=== PATIENT | male | born 1950 | race Caucasian/White ===

== ENCOUNTER 2017-08-08 11:37 | Observation (INO) | payer MEDICARE, OTHER ==
[~2017-08-08] VITALS: Ht 180.3 cm; Wt 122.0 kg
[2017-08-08 11:41] VITALS: BP 161/96; PULSE 59; RESP 17; TEMP 98.1; O2SAT 95
--- NOTE | 2017-08-08 11:54 | PD ---
HPI Chief Complaint: SPEECH PROBLEMS Time Seen by Provider: 11:49 Travel History International Travel<30 days: No Contact w/Intl Traveler<30days: No Traveled to known affect area: No History of Present Illness HPI PATIENT WAS NOTED BY TO BE SPEAKING CLEAR BUT ASKING REPETITIVE QUESTIONS AT 9A, WHILE GETTING OUT OF SHOWER...PATIENT ABLE TO MOVE ALL EXTREMITIES WELL. PATIENT DENIES ASSOC FACTORS OF GÓMEZ/CP/ABDPAIN/BACKPAIN/N/V/D/COUGH/....PER FAMILY NORMAL GLUCOSE AT HOME..... STATES THAT THEY ARE HERE VISITING, DO NOT HAVE LOCAL DOCTORS. PMHX: DM, HTN, CHOL Allergies-Medications (Allergen,Severity, Reaction): Coded Allergies: No Known Allergies (Unverified , 08/08/17) Reported Meds & Prescriptions Reported Meds & Active Scripts Active Reported D3 Super Strength (Cholecalciferol) 2,000 Unit Cap 2,000 Units PO DAILY B12 (Cyanocobalamin) 1,000 Mcg Tab 5,000 Vitamin E 100 Unit Tab 100 Units PO DAILY Pioglitazone-Metformin 15-500 mg Tab 1 Tab PO DAILY Aspirin 81 Mg Chew 81 Mg CHEW DAILY Rosuvastatin (Rosuvastatin Calcium) 10 Mg Tab 10 Mg PO HS Alfuzosin ER 24 HR 10 Mg Tab 10 Mg PO DAILY Glucosamine-Chondroitin 500-400 Mg Tab 1 Tab PO DAILY Review of Systems Except as stated in HPI: all other systems reviewed are Neg General / Constitutional: No: Fever Eyes: No: Visual changes HENT: No: Headaches Cardiovascular: No: Chest Pain or Discomfort Respiratory: No: Shortness of Breath Gastrointestinal: No: Abdominal Pain Genitourinary: No: Dysuria Musculoskeletal: No: Pain Skin: No Rash Neurologic: Positive: Other (REPETITIVE QUESTIONING) Psychiatric: No: Depression Endocrine: No: Polydipsia Hematologic/Lymphatic: No: Easy Bruising Physical Exam Narrative GENERAL: SKIN: Warm and dry. HEAD: Atraumatic. Normocephalic. EYES: Pupils equal and round. No scleral icterus. No injection or drainage. ENT: No nasal bleeding or discharge. Mucous membranes pink and moist. NECK: Trachea midline. No JVD. CARDIOVASCULAR: Regular rate and rhythm. RESPIRATORY: No accessory muscle use. Clear to auscultation. Breath sounds equal bilaterally. GASTROINTESTINAL: Abdomen soft, non-tender, nondistended. MUSCULOSKELETAL: Extremities without clubbing, cyanosis, or edema. No obvious deformities. NEUROLOGICAL: Awake and alert. No obvious cranial nerve deficits. Motor grossly within normal limits. Five out of 5 muscle strength in the arms and legs. Normal speech. PSYCHIATRIC: Appropriate mood and affect; insight and judgment normal. Data Data Last Documented VS Vital Signs Date Time Temp Pulse Resp B/P (MAP) Pulse Ox O2 Delivery O2 Flow Rate FiO2 08/08/17 12:41 82 17 140/86 (104) 98 Room Air 08/08/17 11:41 98.1 Orders Orders Electrocardiogram (08/08/17 11:59) Prothrombin Time / Inr (Pt) (08/08/17 11:59) Act Partial Throm Time (Ptt) (08/08/17 11:59) Complete Blood Count With Diff (08/08/17 11:59) Comprehensive Metabolic Panel (08/08/17 11:59) Drug Screen, Random Urine (08/08/17 11:59) Troponin I (08/08/17 11:59) Urinalysis - C+S If Indicated (08/08/17 11:59) Ct Brain W/O Iv Contrast(Rout) (08/08/17 11:59) Chest, Single Ap (08/08/17 11:59) Ecg Monitoring (08/08/17 11:59) Iv Access Insert/Monitor (08/08/17 11:59) Oximetry (08/08/17 11:59) Blood Glucose (08/08/17 11:59) Sodium Chloride 0.9% Flush (Ns Flush) (08/08/17 12:00) Labs Laboratory Tests Test 08/08/17 12:05 08/08/17 12:42 White Blood Count 7.2 TH/MM3 Red Blood Count 4.30 MIL/MM3 Hemoglobin 13.5 GM/DL Hematocrit 40.7 % Mean Corpuscular Volume 94.8 FL Mean Corpuscular Hemoglobin 31.4 PG Mean Corpuscular Hemoglobin Concent 33.1 % Red Cell Distribution Width 13.0 % Platelet Count 252 TH/MM3 Mean Platelet Volume 7.2 FL Neutrophils (%) (Auto) 65.5 % Lymphocytes (%) (Auto) 21.2 % Monocytes (%) (Auto) 11.4 % Eosinophils (%) (Auto) 1.6 % Basophils (%) (Auto) 0.3 % Neutrophils # (Auto) 4.7 TH/MM3 Lymphocytes # (Auto) 1.5 TH/MM3 Monocytes # (Auto) 0.8 TH/MM3 Eosinophils # (Auto) 0.1 TH/MM3 Basophils # (Auto) 0.0 TH/MM3 CBC Comment DIFF FINAL Differential Comment Prothrombin Time 10.5 SEC Prothromb Time International Ratio 1.0 RATIO Activated Partial Thromboplast Time 26.2 SEC Blood Urea Nitrogen 21 MG/DL Creatinine 1.20 MG/DL Random Glucose 107 MG/DL Total Protein 7.8 GM/DL Albumin 3.6 GM/DL Calcium Level 9.3 MG/DL Alkaline Phosphatase 73 U/L Aspartate Amino Transf (AST/SGOT) 52 U/L Alanine Aminotransferase (ALT/SGPT) 51 U/L Total Bilirubin 0.5 MG/DL Sodium Level 139 MEQ/L Potassium Level 5.2 MEQ/L Chloride Level 104 MEQ/L Carbon Dioxide Level 27.9 MEQ/L Anion Gap 7 MEQ/L Estimat Glomerular Filtration Rate 61 ML/MIN Troponin I LESS THAN 0.02 NG/ML Urine Color YELLOW Urine Turbidity CLEAR Urine pH 7.0 Urine Specific [place] 1.015 Urine Protein NEG mg/dL Urine Glucose (UA) NEG mg/dL Urine Ketones NEG mg/dL Urine Occult Blood NEG Urine Nitrite NEG Urine Bilirubin NEG Urine Urobilinogen LESS THAN 2.0 MG/DL Urine Leukocyte Esterase NEG Urine RBC 1 /hpf Urine WBC 4 /hpf Urine Amorphous Sediment RARE Urine Mucus FEW /lpf Microscopic Urinalysis Comment CATH-CULT NOT IND Urine Opiates Screen NEG Urine Barbiturates Screen NEG Urine Amphetamines Screen NEG Urine Benzodiazepines Screen NEG Urine Cocaine Screen NEG Urine Cannabinoids Screen NEG [facility] Medical Decision Making Medical Screen Exam Complete: Yes Emergency Medical Condition: Yes Medical Record Reviewed: Yes Differential Diagnosis TIA V CVA (WERNICKIE V BROCA TYPE) V HYPOGLYCEMIA Narrative Course CT HEAD NEG FOR ICH, GLUCOSE WNL, ELECTROLYTE WNL.....PATIENT WILL BE ADMITTED FOR FURTHER WORKUP C/W TIA Diagnosis Primary Impression: TIA Admitting Information Admitting Physician Requests: Observation Gautam Rendon MD Aug 08, 2017 11:54
[2017-08-08] MEDS ORDERED: SODIUM CHLORIDE 0.9% FLUSH 10 ML FLUSH IVF PRN (12:00)
[2017-08-08] MEDS ORDERED: GLUC500T4 PO (12:06)
[2017-08-08] MEDS ORDERED: VITA100T65 PO (12:06)
[2017-08-08] MEDS ORDERED: ALFU10TA2 PO (12:06)
[2017-08-08] MEDS ORDERED: ROSU1TAB6 PO (12:06)
[2017-08-08] MEDS ORDERED: PIOG15TA7 PO (12:06)
[2017-08-08] MEDS ORDERED: ASPI-516 CHEW (12:06)
[2017-08-08] MEDS ORDERED: CYAN1TAB24 (12:06)
[2017-08-08] MEDS ORDERED: D200CAP PO (12:06)
[2017-08-08 12:21] LABS: AUTOMATED NEUTROPHIL # 4.7 TH/MM3 (1.8-7.7); BASOPHIL % 0.3 % (0.0-2.0); EOSINOPHIL # 0.1 TH/MM3 (0-0.4); EOSINOPHIL % 1.6 % (0.0-4.0); HEMATOCRIT 40.7 % (39.0-51.0); HEMOGLOBIN 13.5 GM/DL (13.0-17.0); LYMPH % 21.2 % (9.0-44.0); LYMPHOCYTE # 1.5 TH/MM3 (1.0-4.8); MEAN CELL VOLUME 94.8 FL (80.0-100.0); MEAN CORPUSCULAR HEMOGLOBIN 31.4 PG (27.0-34.0); MEAN CORPUSCULAR HGB CONC 33.1 % (32.0-36.0); MEAN PLATELET VOLUME 7.2 FL (7.0-11.0); MONO % 11.4 % (0.0-8.0); MONOCYTE # 0.8 TH/MM3 (0-0.9); NEUT % 65.5 % (16.0-70.0); PLATELET COUNT 252 TH/MM3 (150-450); WHITE BLOOD COUNT 7.2 TH/MM3 (4.0-11.0)
[2017-08-08 12:29] LABS: PROTHROMBIN TIME - PATIENT 10.5 SEC (9.8-11.6)
[2017-08-08 12:41] VITALS: BP 140/86; PULSE 82; RESP 17; O2SAT 98
[2017-08-08 12:41] LABS: ALT (GPT) 51 U/L (12-78)
[2017-08-08 12:42] LABS: ALBUMIN 3.6 GM/DL (3.4-5.0); BICARBONATE 27.9 MEQ/L (21.0-32.0); BLOOD UREA NITROGEN 21 MG/DL (7-18); CALCIUM 9.3 MG/DL (8.5-10.1); CHLORIDE 104 MEQ/L (98-107); GLOMERULAR FILTRATION RATE 61 ML/MIN (>89); GLUCOSE,RANDOM 107 MG/DL (74-106); SODIUM (NA) 139 MEQ/L (136-145)
[2017-08-08 12:43] LABS: AST (GOT) 52 U/L (15-37)
[2017-08-08 12:45] LABS: ALKALINE PHOSPHATASE 73 U/L (45-117); TOTAL BILIRUBIN ADULT 0.5 MG/DL (0.2-1.0); TOTAL PROTEIN 7.8 GM/DL (6.4-8.2); TROPONIN I LESS THAN 0.02 NG/ML (0.02-0.05)
[2017-08-08 12:49] VITALS: BP 127/71; PULSE 86; RESP 16; O2SAT 100
--- NOTE | 2017-08-08 12:56 | RADRPT ---
EXAM DATE/TIME: 08/08/2017 12:14 [facility] COMPARISON: No previous studies available for comparison. INDICATIONS : Syncope, confusion, high blood pressure. MEDICAL HISTORY : Hypertension. SURGICAL HISTORY : None. ENCOUNTER: Initial ACUITY: 2 days PAIN SCORE: 0/10 LOCATION: Bilateral chest FINDINGS: A single view of the chest demonstrates the lungs to be symmetrically aerated without evidence of mas s, infiltrate or effusion. The cardiomediastinal contours are unremarkable. Osseous structures are intact. CONCLUSION: Normal examination. Luis Angel Kc MD on August 08, 2017 at 12:53 Board Certified Radiologist. This report was verified electronically.
--- NOTE | 2017-08-08 13:05 | RADRPT ---
EXAM DATE/TIME: 08/08/2017 12:51 [facility] COMPARISON: No previous studies available for comparison. INDICATIONS : Altered mental status. Repetitive questioning. RADIATION DOSE: 46.32 CTDIvol (mGy) MEDICAL HISTORY : Hypertension. Diabetes mellitus type 2. SURGICAL HISTORY : Cholecystectomy. Appendectomy. ENCOUNTER: Initial ACUITY: 1 day PAIN SCALE: 0/10 LOCATION: cranial TECHNIQUE: Multiple contiguous axial images were obtained of the head. Using automated exposure control and adj ustment of the mA and/or kV according to patient size, radiation dose was kept as low as reasonably a chievable to obtain optimal diagnostic quality images. DICOM format image data is available electro nically for review and comparison. FINDINGS: CEREBRUM: The ventricles are normal for age. No evidence of midline shift, mass lesion, hemorrhage or acute in farction. No extra-axial fluid collections are seen. POSTERIOR FOSSA: The cerebellum and brainstem are intact. The 4th ventricle is midline. The cerebellopontine angle i s unremarkable. EXTRACRANIAL: The visualized portion of the orbits is intact. SKULL: The calvaria is intact. No evidence of skull fracture. CONCLUSION: Normal examination. Luis Angel Kc MD on August 08, 2017 at 13:01 Board Certified Radiologist. This report was verified electronically.
[2017-08-08 13:17] LABS: AMORPHOUS SEDIMENT, URINE RARE; BILIRUBIN, URINE NEG (NEG); BLOOD, URINE NEG (NEG); GLUCOSE,URINE NEG (NEG); KETONE, URINE NEG (NEG); MUCUS URINE FEW /lpf (OCC); NITRITE,URINE NEG (NEG); URINE COLOR YELLOW (YELLW/STRAW); URINE LEUKOCYTE ESTERASE NEG (NEG)
[2017-08-08] MEDS ORDERED: DEXTROSE 50% IN WATER 50 ML VIAL(D50) IV PUSH PRN (14:15)
[2017-08-08] MEDS ORDERED: GLUCAGON 1 MG/ML VIAL OTHER PRN (14:15)
[2017-08-08] MEDS ORDERED: SODIUM CHLORIDE 0.9% FLUSH 10 ML FLUSH IV FLUSH PRN (14:15)
[2017-08-08] MEDS ORDERED: ENALAPRILAT 1.25 MG/ML VIAL IV PUSH PRN (14:15)
--- NOTE | 2017-08-08 14:18 | HHI.HP ---
HPI Service [facility] Hospitalists Primary Care Physician Non-Staff Admission Diagnosis TIA Diagnoses: Chief Complaint: AMS Travel History International Travel<30 Days: No Contact w/Intl Traveler <30 Da: No Traveled to Known Affected Are: No History of Present Illness Written by Meredith Somers, acting as scribe for Dr. Palma on 08/08/17 at 14: 15. This is a 66yo male with a PMHX of HTN, DM, HLD and BPH who presents to [facility] ED with complaints of altered mental status x 1 day. Patient woke up in his usual state of health this morning but shortly after taking a hot bath he developed altered mental status with repetitive questioning. Patient reports feeling lightheaded after taking a hot bath. He was unable to recall the date or city. Patient was able to recognize his . He was able to walk without any problems. He continues to be confused. He has no recollection of the event. Presently, he is not lightheaded. He denies any chest pain or shortness of breath. He denies any vision changes, weakness, numbness or tingling. He denies any nausea, vomiting or abdominal pain. His states he has not returned to his baseline. In the ED, CT head was negative for acute intracranial process. Lab studies were essentially unremarkable. CXR showed no acute cardiopulmonary process. Initial troponin was 0.02. Review of Systems Except as stated in HPI: all other systems reviewed are Neg Past Family Social History Past Medical History Hypertension Diabetes Dyslipidemia BPH Hx of kidney stones Past Surgical History Cholecystectomy Appendectomy Bilateral shoulder and knee arthroscopies Left CTR Tonsillectomy Reported Medications D3 Super Strength (Cholecalciferol) 2,000 Unit Cap 2,000 Units PO DAILY B12 (Cyanocobalamin) 1,000 Mcg Tab 5,000 Vitamin E 100 Unit Tab 100 Units PO DAILY Pioglitazone-Metformin 15-500 mg Tab 1 Tab PO DAILY Aspirin 81 Mg Chew 81 Mg CHEW DAILY Rosuvastatin (Rosuvastatin Calcium) 10 Mg Tab 10 Mg PO HS Alfuzosin ER 24 HR 10 Mg Tab 10 Mg PO DAILY Glucosamine-Chondroitin 500-400 Mg Tab 1 Tab PO DAILY Allergies: Coded Allergies: No Known Allergies (Unverified , 08/08/17) Active Ordered Medications Current Medications Medications (Trade) Dose Ordered Sig/Anderson Route Start Time Stop Time Status Last Admin (NS Flush) 2 ml UNSCH PRN IVF 08/08/17 12:00 (Aspirin Chew) 81 mg DAILY CHEW 08/09/17 09:00 UNV Non-Formulary Medication 10 mg HS PO 08/08/17 21:00 UNV (NS Flush) 2 ml BID IV FLUSH 08/08/17 21:00 UNV (NS Flush) 2 ml UNSCH PRN IV FLUSH 08/08/17 14:15 UNV (Vasotec Inj) 1.25 mg Q4H PRN IV PUSH 08/08/17 14:15 UNV (NovoLOG SUPPLEMENTAL SCALE) 1 ACHS SQ 08/08/17 17:00 UNV (D50w (Vial) Inj) 50 ml UNSCH PRN IV PUSH 08/08/17 14:15 UNV (Glucagon Inj) 1 mg UNSCH PRN OTHER 08/08/17 14:15 UNV (Lovenox Inj) 40 mg Q24H SQ 08/08/17 14:15 UNV Family History Father, ND, cardiac stents DM No FMHX of stroke Social History Patient denies any previous tobacco use, EtOH consumption or illicit drug use. Physical Exam Vital Signs Vital Signs Date Time Temp Pulse Resp B/P (MAP) Pulse Ox O2 Delivery O2 Flow Rate FiO2 08/08/17 12:41 82 17 140/86 (104) 98 Room Air 08/08/17 11:41 98.1 59 17 161/96 (117) 95 Physical Exam GENERAL: This is a well-nourished, well-developed male patient, in no apparent distress. Awake and alert. SKIN: No rashes, ecchymoses or lesions. Cool and dry. HEAD: Atraumatic. Normocephalic. No temporal or scalp tenderness. EYES: Pupils equal round and reactive. Extraocular motions intact. No scleral icterus. No injection or drainage. ENT: Nose without bleeding or purulent drainage. Throat without erythema, tonsillar hypertrophy or exudate. Uvula midline. Airway patent. NECK: Trachea midline. No lymphadenopathy. Supple, nontender, no meningeal signs. CARDIOVASCULAR: Regular rate and rhythm without murmurs, gallops, or rubs. RESPIRATORY: Clear to auscultation. Breath sounds equal bilaterally. No wheezes , rales, or rhonchi. GASTROINTESTINAL: Abdomen soft, non-tender, nondistended. No hepato-splenomegaly , or palpable masses. No guarding. MUSCULOSKELETAL: Extremities without clubbing, cyanosis, or edema. No joint tenderness, effusion, or edema noted. No calf tenderness. NEUROLOGICAL: Awake and alert. He is oriented x 3. Cranial nerves II through XII grossly intact. Motor and sensory grossly within normal limits. Five out of 5 muscle strength in all muscle groups. Normal speech. Laboratory Laboratory Tests Test 08/08/17 12:05 08/08/17 12:42 White Blood Count 7.2 Red Blood Count 4.30 Hemoglobin 13.5 Hematocrit 40.7 Mean Corpuscular Volume 94.8 Mean Corpuscular Hemoglobin 31.4 Mean Corpuscular Hemoglobin Concent 33.1 Red Cell Distribution Width 13.0 Platelet Count 252 Mean Platelet Volume 7.2 Neutrophils (%) (Auto) 65.5 Lymphocytes (%) (Auto) 21.2 Monocytes (%) (Auto) 11.4 Eosinophils (%) (Auto) 1.6 Basophils (%) (Auto) 0.3 Neutrophils # (Auto) 4.7 Lymphocytes # (Auto) 1.5 Monocytes # (Auto) 0.8 Eosinophils # (Auto) 0.1 Basophils # (Auto) 0.0 CBC Comment DIFF FINAL Differential Comment Prothrombin Time 10.5 Prothromb Time International Ratio 1.0 Activated Partial Thromboplast Time 26.2 Blood Urea Nitrogen 21 Creatinine 1.20 Random Glucose 107 Total Protein 7.8 Albumin 3.6 Calcium Level 9.3 Alkaline Phosphatase 73 Aspartate Amino Transf (AST/SGOT) 52 Alanine Aminotransferase (ALT/SGPT) 51 Total Bilirubin 0.5 Sodium Level 139 Potassium Level 5.2 Chloride Level 104 Carbon Dioxide Level 27.9 Anion Gap 7 Estimat Glomerular Filtration Rate 61 Troponin I LESS THAN 0.02 Urine Color YELLOW Urine Turbidity CLEAR Urine pH 7.0 Urine Specific [place] 1.015 Urine Protein NEG Urine Glucose (UA) NEG Urine Ketones NEG Urine Occult Blood NEG Urine Nitrite NEG Urine Bilirubin NEG Urine Urobilinogen LESS THAN 2.0 Urine Leukocyte Esterase NEG Urine RBC 1 Urine WBC 4 Urine Amorphous Sediment RARE Urine Mucus FEW Microscopic Urinalysis Comment CATH-CULT NOT IND Urine Opiates Screen NEG Urine Barbiturates Screen NEG Urine Amphetamines Screen NEG Urine Benzodiazepines Screen NEG Urine Cocaine Screen NEG Urine Cannabinoids Screen NEG Result Diagram: 08/08/17 1205 08/08/17 1205 Imaging Last Impressions Head CT 08/08/17 1159 Signed Impressions: Service Date/Time: Tuesday, August 08, 2017 12:51 - CONCLUSION: Normal examination. Luis Angel Kc MD Chest X-Ray 08/08/17 1159 Signed Impressions: Service Date/Time: Tuesday, August 08, 2017 12:14 - CONCLUSION: Normal examination. Luis Angel Kc MD Capmarcelo VTE Risk Assessment Caprini VTE Risk Assessment: Mod/High Risk (score >= 2) Caprini Risk Assessment Model Point Value = 1 Point Value = 2 Point Value = 3 Point Value = 5 Age 41-60 Minor surgery BMI > 25 kg/m2 Swollen legs Varicose veins or History of unexplained or recurrent spontaneous Oral contraceptives or hormone replacement Sepsis (< 1 month) Serious lung disease, including pneumonia (< 1 month) Abnormal pulmonary function Acute myocardial infarction Congestive heart failure (< 1 month) History of inflammatory bowel disease Medical patient at bed rest Age 61-74 Arthroscopic surgery Major open surgery (> 45 min) Laparoscopic surgery (> 45 min) Malignancy Confined to bed (> 72 hours) Immobilizing plaster cast Central venous access Age >= 75 History of VTE Family history of VTE Factor V Leiden Prothrombin [id number] Lupus anticoagulant Anticardiolipin antibodies Elevated serum homocysteine Heparin-induced thrombocytopenia Other congenital or acquired thrombophilia Stroke (< 1 month) Elective arthroplasty Hip, pelvis, or leg fracture Acute spinal cord injury (< 1 month) Prophylaxis Regimen Total Risk Factor Score Risk Level Prophylaxis Regimen 0-1 Low Early ambulation 2 Moderate Order ONE of the following: *Sequential Compression Device (SCD) *Heparin 5000 units SQ BID 3-4 Higher Order ONE of the following medications: *Heparin 5000 units SQ TID *Enoxaparin/Lovenox 40 mg SQ daily (WT < 150 kg, CrCl > 30 mL/min) *Enoxaparin/Lovenox 30 mg SQ daily (WT < 150 kg, CrCl > 10-29 mL/min) *Enoxaparin/Lovenox 30 mg SQ BID (WT < 150 kg, CrCl > 30 mL/min) AND/OR *Sequential Compression Device (SCD) 5 or more Highest Order ONE of the following medications: *Heparin 5000 units SQ TID (Preferred with Epidurals) *Enoxaparin/Lovenox 40 mg SQ daily (WT < 150 kg, CrCl > 30 mL/min) *Enoxaparin/Lovenox 30 mg SQ daily (WT < 150 kg, CrCl > 10-29 mL/min) *Enoxaparin/Lovenox 30 mg SQ BID (WT < 150 kg, CrCl > 30 mL/min) AND *Sequential Compression Device (SCD) Assessment and Plan Assessment and Plan TIA/CVA - CT head negative for acute intracranial process, images reviewed by me - Neurology consulted, appreciate recommendations - PT/OT/ST eval/tx - 2D echo - carotid doppler US - MRI/MRA brain - holter monitor - monitor blood sugar - NPO for now, bedside swallow evaluation - ASA daily - Continuous cardiac monitoring - Seizure and fall precautions Hypertension - Allow permissive hypertension for now - Vasotec 1.25mg IV q6h prn with parameters BP > 220/110 Diabetes - hold home oral antidiabetic medication - Accu-Cheks - Insulin sliding scale - Obtain hemoglobin A1c Hyperkalemia - slight hemolysis noted on specimen - continue to monitor K level Dyslipidemia - Resume home dose of statin therapy BPH - resume home medication DVT prophylaxis - Lovenox sq This note was transcribed by TRACY Mcdaniel . I, Dr. Ivette Palma personally performed the history, physical exam, and medical decision making; and confirmed the accuracy of the information in the transcribed note. Authenticated by Dr. Ivette Palma on 08/08/17 at 14:15. Discussed Condition With ED physician, patient Meredith Somers Aug 08, 2017 14:18 Ivette Palma MD Aug 08, 2017 20:21
--- NOTE | 2017-08-08 15:09 | RADRPT ---
EXAM DATE/TIME: 08/08/2017 14:15 [facility] COMPARISON: No previous studies available for comparison. INDICATIONS : Transient ischemic attack. MEDICAL HISTORY : Hypercholesterolemia. Hypertension. Diabetes. SURGICAL HISTORY : Tonsillectomy. Appendectomy. Cholecystectomy. Abdominal surgery. Bilateral shoulder pain. Knee surger y. Left hand surgery. ENCOUNTER: Initial ACUITY: 1 day PAIN SCORE: 0/10 LOCATION: Bilateral neck PEAK SYSTOLIC VELOCITIES (cm/sec): ICA/CCA RATIO: Right: 0.6 Left: 0.8 ICA: Right: 71 Left: 80 CCA: Right: 116 Left: 101 ECA: Right: 95 Left: 118 VERTEBRAL: Right: 51 antegrade Left: 56 antegrade Elevated flow velocities and ICA/CCA ratios have been found to correlate with increased degrees of vessel stenosis, calculated as percentage of diameter relative to a normal segment of distal ICA/CCA FINDINGS: RIGHT CAROTID: No significant stenosis is visualized. The waveforms are within normal limits. LEFT CAROTID: No significant stenosis is visualized. The waveforms are within normal limits. VERTEBRAL ARTERIES: Antegrade flow is seen in both vertebral arteries. MISCELLANEOUS: None. CONCLUSION: No evidence of flow-limiting carotid stenosis. Duncan England MD on August 08, 2017 at 15:04 Board Certified Radiologist. This report was verified electronically.
--- NOTE | 2017-08-08 15:33 | ECHRPT ---
Indication: cva/tia CONCLUSIONS The left ventricular systolic function is normal with an estimated ejection fraction in the range of 60-65%. Normal left ventricular size. Mild concentric left ventricular hypertrophy. No regional wall motion abnormalities are present. Trivial pulmonary valve regurgitation. atrial septum appears aneurysmal however image quality is limited so dificult to confirm BP: 140 / 86 HR: 82 Rhythm: Sinus MEASUREMENTS (Male / Female) Normal Values Technical Quality:Fair 2D ECHO LV Diastolic Diameter PLAX 4.2 cm 4.2 - 5.9 / 3.9 - 5.3 cm LV Systolic Diameter PLAX 2.8 cm IVS Diastolic Thickness 1.4 cm 0.6 - 1.0 / 0.6 - 0.9 cm LVPW Diastolic Thickness 1.4 cm 0.6 - 1.0 / 0.6 - 0.9 cm LV Relative Wall Thickness 0.7 RV Internal Dim ED PLAX 3.1 cm LVOT Diameter 2.2 cm LA Systolic Diameter LX 3.6 cm 3.0 - 4.0 / 2.7 - 3.8 cm M-MODE Aortic Root Diameter MM 3.1 cm LA Systolic Diameter MM 4.1 cm LA Ao Ratio MM 1.3 AV Cusp Separation MM 2.0 cm DOPPLER AV Peak Velocity 152.0 cm/s AV Peak Gradient 9.2 mmHg LVOT Peak Velocity 112.0 cm/s LVOT Peak Gradient 5.0 mmHg AV Area Cont Eq pk 2.8 cm MV Area PHT 2.6 cm Mitral E Point Velocity 69.6 cm/s Mitral A Point Velocity 92.3 cm/s Mitral E to A Ratio 0.8 LV E' Lateral Velocity 8.5 cm/s Mitral E to LV E' Lateral Ratio 8.2 LV E' Septal Velocity 6.6 cm/s Mitral E to LV E' Septal Ratio 10.5 PV Peak Velocity 93.7 cm/s PV Peak Gradient 3.5 mmHg FINDINGS LEFT VENTRICLE The left ventricular systolic function is normal with an estimated ejection fraction in the range of 60-65%. Normal left ventricular size. Mild concentric left ventricular hypertrophy. No regional wall motion abnormalities are present. RIGHT VENTRICLE Normal right ventricular size and systolic function. LEFT ATRIUM The left atrial size is normal. RIGHT ATRIUM The right atrial size is normal. ATRIAL SEPTUM Normal atrial septal thickness without atrial level shunting by limited color doppler interrogation. AORTA The aortic root and proximal ascending aorta are normal in size on limited imaging. MITRAL VALVE Structurally normal mitral valve. No mitral valve stenosis or regurgitation. AORTIC VALVE Trileaflet aortic valve. No aortic valve stenosis or regurgitation. TRICUSPID VALVE Structurally normal tricuspid valve. No tricuspid valve stenosis or regurgitation. PULMONARY VALVE Trivial pulmonary valve regurgitation. VESSELS The inferior vena cava is normal in size. PERICARDIUM No pericardial effusion. Victorino Sim MD, FACC, [facility] [place] (Electronically Signed) Final Date:08 August 2017 15:31
[2017-08-08 15:43] VITALS: O2SAT 97
--- NOTE | 2017-08-08 15:48 | RADRPT ---
EXAM DATE/TIME: 08/08/2017 15:15 [facility] COMPARISON: No previous studies available for comparison. INDICATIONS : CVA. Forgetfullness. MEDICAL HISTORY : Hypertension. Diabetes mellitus type 2. Renal calculi. SURGICAL HISTORY : Tonsillectomy. Cholecystectomy. Appendectomy. ENCOUNTER: Initial ACUITY: 1 day PAIN SCORE: 0/10 LOCATION: head Please note a normal MRA of the brain does not entirely exclude the possibility of a small aneurysm, nor the possibility of distal intracranial vessel disease. TECHNIQUE: 3D time of flight MRA was performed. Source images, multiplanar STS MIP, and 3D volume MIP reconstru ctions were reviewed. FINDINGS: There is excellent visualization of the major intracranial arteries out to the second-order branch ve ssels. There is no evidence for aneurysm, vessel truncation or stenosis, and no evidence for vascula r malformation. CONCLUSION: Normal examination. Duncan England MD on August 08, 2017 at 15:43 Board Certified Radiologist. This report was verified electronically.
--- NOTE | 2017-08-08 15:50 | RADRPT ---
EXAM DATE/TIME: 08/08/2017 15:15 [facility] COMPARISON: CT BRAIN W/O CONTRAST, August 08, 2017, 12:51. INDICATIONS : CVA. MEDICAL HISTORY : Hypertension. Renal calculi. Diabetes mellitus type 2. SURGICAL HISTORY : Tonsillectomy. Cholecystectomy. Appendectomy. ENCOUNTER: Initial ACUITY: 1 day PAIN SCORE: 0/10 LOCATION: Head TECHNIQUE: Multiplanar, multisequence MRI of the brain was performed without contrast. FINDINGS: CEREBRUM: The ventricles are normal. No evidence of midline shift, mass lesion, hemorrhage or acute infarction . No extraaxial fluid collections are seen. The pituitary gland and suprasellar cistern are normal in configuration. WHITE MATTER: No significant signal abnormalities are seen in the white matter. POSTERIOR FOSSA: The cerebellum and brainstem demonstrate no abnormality. The 4th ventricle is midline. The cerebello pontine angle is unremarkable. The cerebellar tonsils are normal in position. DIFFUSION IMAGING: No focal areas of restricted diffusion are seen. No evidence of acute infarction. EXTRACRANIAL: The visualized portions of the orbits and paranasal sinuses are unremarkable. CONCLUSION: Negative noncontrast brain MRI. There are no findings to indicate recent ischemia. Duncan Bustamante MD on August 08, 2017 at 15:43 Board Certified Radiologist. This report was verified electronically.
[2017-08-08 16:42] VITALS: BP 149/77; PULSE 60; RESP 16; O2SAT 97
[2017-08-08] MEDS: ENOXAPARIN SODIUM 40 MG/0.4 ML SYRINGE SQ SCH (16:47)
[2017-08-08] MEDS: INSULIN ASPART SUPPLEMENTAL SCALE SQ SCH ×2 (17:00→21:00)
[2017-08-08 20:30] VITALS: BP 136/80; PULSE 65; RESP 17; TEMP 97.7; O2SAT 96
--- NOTE | 2017-08-08 20:53 | MB ---
cc: BALJINDER SHARMA M.D. DATE OF CONSULTATION 08/08/2017 DATE OF 1950, 66 years REASON FOR CONSULTATION Transient ischemic attack. HISTORY OF THE PRESENT ILLNESS This is a 66-year-old man with a history of hypertension, hyperlipidemia, BPH and diabetes, came to the hospital with confusion for one day. He is on vacation here for a total of 2 weeks from [place] apparently. He woke up apparently in his usual state of health but shortly after taking a bath developed some confusion, repetitive questioning, lightheadedness, was unable to recall the date or city. He did recognize his . Of note his is not at bedside. My history is taken from the chart as he is unable to give me much input on what occurred. He is not oriented to that day. He has no recollection of the event. Currently he denies any headache, chest pain, shortness of breath or weakness. He denies any new medicines. MEDICATIONS His home medicines are: 1. Vitamin D3. 2. B12. 3. Vitamin E. 4. Pioglitazone with metformin. 5. Baby aspirin he takes twice a day he states. 6. Rosuvastatin. 7. Alfuzosin. 8. Glucosamine chondroitin. ALLERGIES None reported. FAMILY HISTORY Cardiac [place] in the dad. Diabetes. SOCIAL HISTORY No drugs, alcohol, tobacco. . From [place] on vacation here. PHYSICAL EXAMINATION VITAL SIGNS: Temperature 98.1, pulse 82, respiratory rate 17, blood pressure 140/86, sating at 97% room air. NECK: His neck is supple. No appreciable bruits. HEART: Regular. NEUROLOGIC: He is awake, alert. He thinks it is Sunday, the 2017. He knows he is in [place]. His face is symmetrical. Tongue midline. Motor: No obvious weakness, drift or leg lag. Cerebellar intact. Toes downgoing. Gait is withheld. LABORATORY DATA Labs are reviewed. Potassium this morning was 5.2, glucose 107, A1c is pending. AST 52, ALT 51. Cardiac enzymes negative. Toxicology was negative. Urine unremarkable. IMAGING STUDIES MRA [place] was normal. Carotid ultrasound no significant stenosis seen. MRI brain negative for any acute findings. IMPRESSION Change in mental status, questionably due to a hot bath did he have a TIA or any hypertensive event is really unknown. We recommend getting an EEG just for completion although less likely this may have been a TIA. His blood pressure may have gone up from the hot bath. Recommend putting him on a full dose aspirin since he takes two baby aspirins. Monitor his vitals making sure that his blood pressure is controlled. Holter monitor. 2-D echo. Lipid panel and if he is stable he can be discharged home with follow up with his doctor in his home state. MD NIRU Musa/KIM /4:00 PM /8:20 PM
[2017-08-08] MEDS: SODIUM CHLORIDE 0.9% FLUSH 10 ML FLUSH IV FLUSH SCH (21:32)
[2017-08-08] MEDS: ATORVASTATIN 20 MG TAB PO SCH (21:33)
[2017-08-08 22:31] LABS: HEMOGLOBIN A1C 6.4 % (4.3-6.0)
[2017-08-09] VITALS (11 sets, daily range): BP systolic 129–143; BP diastolic 71–84; PULSE 56–75; RESP 17–20; TEMP 97.3–98.7; O2SAT 93–98
[2017-08-09 07:43] LABS: AUTOMATED NEUTROPHIL # 4.2 TH/MM3 (1.8-7.7); BASOPHIL % 0.3 % (0.0-2.0); EOSINOPHIL # 0.2 TH/MM3 (0-0.4); EOSINOPHIL % 2.5 % (0.0-4.0); HEMATOCRIT 39.4 % (39.0-51.0); HEMOGLOBIN 13.3 GM/DL (13.0-17.0); LYMPH % 20.7 % (9.0-44.0); LYMPHOCYTE # 1.4 TH/MM3 (1.0-4.8); MEAN CELL VOLUME 94.7 FL (80.0-100.0); MEAN CORPUSCULAR HEMOGLOBIN 31.8 PG (27.0-34.0); MEAN CORPUSCULAR HGB CONC 33.6 % (32.0-36.0); MEAN PLATELET VOLUME 7.1 FL (7.0-11.0); MONO % 13.5 % (0.0-8.0); MONOCYTE # 0.9 TH/MM3 (0-0.9); PLATELET COUNT 252 TH/MM3 (150-450); RED BLOOD COUNT 4.17 MIL/MM3 (4.50-5.90); RED CELL DISTRIBUTION WIDTH 12.9 % (11.6-17.2); WHITE BLOOD COUNT 6.7 TH/MM3 (4.0-11.0)
[2017-08-09] MEDS: INSULIN ASPART SUPPLEMENTAL SCALE SQ SCH ×2 (08:00→21:25)
[2017-08-09 08:01] LABS: BICARBONATE 30.1 MEQ/L (21.0-32.0); CALCIUM 9.1 MG/DL (8.5-10.1); CREATININE 0.92 MG/DL (0.60-1.30)
[2017-08-09 08:04] LABS: CHOLESTEROL/ HDL RATIO 3.24 RATIO; HDL CHOLESTEROL 35.8 MG/DL (40.0-60.0)
[2017-08-09] MEDS ORDERED: ASPIRIN 81 MG CHEW TAB CHEW SCH (09:00)
[2017-08-09] MEDS: SODIUM CHLORIDE 0.9% FLUSH 10 ML FLUSH IV FLUSH SCH ×2 (09:42→21:23)
--- NOTE | 2017-08-09 14:27 | HHI.PR ---
Subjective Remarks Patient says he is feeling well. Denies any chest pain or shortness breath. Denies any confusion. Discussed with as well over the phone. She says he is back to normal. Objective Vital Signs Date Time Temp Pulse Resp B/P (MAP) Pulse Ox O2 Delivery O2 Flow Rate FiO2 08/09/17 12:03 97.7 67 20 142/77 (98) 93 08/09/17 08:44 98.2 66 20 133/77 (95) 93 08/09/17 08:00 64 08/09/17 05:17 97.3 56 18 129/77 (94) 97 08/09/17 04:52 98 21 08/09/17 01:56 68 08/09/17 00:20 97 21 08/09/17 00:20 97 08/09/17 00:18 97.5 69 17 131/71 (91) 96 08/08/17 20:30 97.7 65 17 136/80 (98) 96 08/08/17 18:40 08/08/17 16:42 60 16 149/77 (101) 97 Room Air 08/08/17 15:43 97 21 I/O 08/08/17 08/08/17 08/08/17 08/09/17 08/09/17 08/09/17 07:00 15:00 23:00 07:00 15:00 23:00 Intake Total 240 ml 600 ml Balance 240 ml 600 ml Intake Oral 240 ml 600 ml # Voids 3 2 # Bowel Movements 0 Result Diagram: 08/09/17 0620 08/09/17 0620 Objective Remarks GENERAL: She is sitting up in chair. Appears comfortable. Alert and oriented 3. SKIN: Warm and dry. HEAD: Normocephalic. EYES: No scleral icterus. No injection or drainage. NECK: Supple, trachea midline. No JVD. CARDIOVASCULAR: Regular rate and rhythm without murmurs, gallops, or rubs. RESPIRATORY: Breath sounds equal bilaterally. No accessory muscle use. GASTROINTESTINAL: Abdomen soft, non-tender, nondistended. MUSCULOSKELETAL: No cyanosis, or edema. BACK: Nontender without obvious deformity. No CVA tenderness. A/P Assessment and Plan //TIA/CVA - CT head negative for acute intracranial process, images reviewed by me - Neurology consulted, appreciate recommendations - PT/OT/ST eval/tx - 2D echo negative for thrombus. - carotid doppler US negative for hemodynamically significant stenosis. - MRI/MRA brain negative acute process - holter monitor - monitor blood sugar - NPO for now, bedside swallow evaluation - ASA daily - Continuous cardiac monitoring - Seizure and fall precautions = Echo with no thrombus, however possible atrial aneurysm. TIA happened on twice daily aspirin. There is no evidence of atrial fibrillation on telemetry so far during this admission. Due to the possibility of paradoxical embolism in this [place] from [place], Discussed with neurology, who agrees with cardiology consultation for SABRINA, ultrasound to rule out DVT. = Pending EEG. Appreciate neurology recommendations. Continue full dose aspirin. //Hypertension - Allow permissive hypertension for now - Vasotec 1.25mg IV q6h prn with parameters BP > 220/110 //Diabetes - hold home oral antidiabetic medication - Accu-Cheks - Insulin sliding scale - Obtain hemoglobin A1c //Hyperkalemia - slight hemolysis noted on specimen - continue to monitor K level //Dyslipidemia - Resume home dose of statin therapy //BPH - resume home medication //DVT prophylaxis - Lovenox sq Discharge Planning pending cardiology consult, possible SABRINA, ultrasound bilateral lower extremities to rule out DVT. Paul Ordoñez MD Aug 09, 2017 14:27
[2017-08-09] MEDS: ENOXAPARIN SODIUM 40 MG/0.4 ML SYRINGE SQ SCH (15:00)
--- NOTE | 2017-08-09 16:05 | PD.44.CHG ---
Code 44 - Inpatient to Obs A clinical review of the case has been conducted by a member of the Utilization Review Committee. The findings indicate the patient meets criteria for observation status. The information and decision has been discussed with the attending physician Paul Ordoñez MD and physician advisor Leonard Chavez. Leonard Chavez MD Aug 09, 2017 16:05
--- NOTE | 2017-08-09 16:17 | PD.CONS ---
HPI Consult Requested By Primary Care Physician Non-Staff History of Present Illness 66-year-old man from [facility] from [place] with pmhx a history of hypertension, hyperlipidemia, BPH and diabetes, came to the hospital with confusion for one day. He was on his usual state of health when woke up confusion, repetitive questioning, lightheadedness, was unable, to recall the date or city. He did recognize his . Echo showed preserved EF however there is a question of ASA , thus cardiology consulted for SABRINA. Denies any headache, chest pain, shortness of breath or weakness. He denies any new medicines. Review of Systems Consitutional: DENIES: Fatigue, Fever, Chills, Weight gain, Weight loss Eyes: DENIES: Amaurosis [place], Change in vision HEENT: DENIES: Lightheadedness, Change in hearing Respiratory: DENIES: See HPI, Cough, Snoring, Shortness of breath, Wheezing, Sputum production Cardiovascular: DENIES: See HPI, Chest pain, Palpitations, Syncope, Tachycardia Gastrointestinal: DENIES: Nausea, Vomiting, Change in bowel habits, Reflux, Bloody stools, Melena Genitourinary: DENIES: Urinary incontinence, Difficulty voiding Integumentary: DENIES: Rash Neurologic: DENIES: Tingling or numbness, Memory problems, Poor Balance, Stroke symptoms Musculoskeletal: DENIES: Joint pain, Muscle pain, Limited range of motion, Back pain Psychiatric: DENIES: Anxiety, Depression, Sleep disturbances Hematologic: DENIES: Bruising tendencies, Bleeding tendencies Endocrine: DENIES: Weight gain, Weight loss, Thyroid disease Past Family Social History Allergies: Coded Allergies: No Known Allergies (Unverified , 08/08/17) Reported Medications Reported Meds & Active Scripts Active Reported D3 Super Strength (Cholecalciferol) 2,000 Unit Cap 2,000 Units PO DAILY B12 (Cyanocobalamin) 1,000 Mcg Tab 5,000 Vitamin E 100 Unit Tab 100 Units PO DAILY Pioglitazone-Metformin 15-500 mg Tab 1 Tab PO DAILY Aspirin 81 Mg Chew 81 Mg CHEW DAILY Rosuvastatin (Rosuvastatin Calcium) 10 Mg Tab 10 Mg PO HS Alfuzosin ER 24 HR 10 Mg Tab 10 Mg PO DAILY Glucosamine-Chondroitin 500-400 Mg Tab 1 Tab PO DAILY Active Ordered Medications Current Medications Medications (Trade) Dose Ordered Sig/Anderson Route Start Time Stop Time Status Last Admin (NS Flush) 2 ml UNSCH PRN IVF 1/17/18 12:00 (Aspirin Chew) 81 mg DAILY CHEW 08/09/17 09:00 08/09/17 09:39 (Lipitor) 20 mg HS PO 08/08/17 21:00 08/08/17 21:33 (NS Flush) 2 ml BID IV FLUSH 08/08/17 21:00 08/09/17 09:42 (NS Flush) 2 ml UNSCH PRN IV FLUSH 08/08/17 14:15 (Vasotec Inj) 1.25 mg Q4H PRN IV PUSH 08/08/17 14:15 (NovoLOG SUPPLEMENTAL SCALE) 1 ACHS SQ 08/08/17 17:00 (D50w (Vial) Inj) 50 ml UNSCH PRN IV PUSH 08/08/17 14:15 (Glucagon Inj) 1 mg UNSCH PRN OTHER 08/08/17 14:15 (Lovenox Inj) 40 mg Q24H SQ 08/08/17 15:00 08/08/17 16:47 Family History Cardiac [place] in the dad. Diabetes. Social History No drugs, alcohol, tobacco. . From [place] on vacation here Physical Exam Vital Signs Vital Signs Date Time Temp Pulse Resp B/P (MAP) Pulse Ox O2 Delivery O2 Flow Rate FiO2 08/09/17 15:54 97.5 62 20 143/84 (103) 94 08/09/17 12:03 97.7 67 20 142/77 (98) 93 08/09/17 08:44 98.2 66 20 133/77 (95) 93 08/09/17 08:00 64 08/09/17 05:17 97.3 56 18 129/77 (94) 97 08/09/17 04:52 98 21 08/09/17 01:56 68 08/09/17 00:20 97 21 08/09/17 00:20 97 08/09/17 00:18 97.5 69 17 131/71 (91) 96 08/08/17 20:30 97.7 65 17 136/80 (98) 96 08/08/17 18:40 08/08/17 16:42 60 16 149/77 (101) 97 Room Air Laboratory Laboratory Tests Test 08/09/17 06:20 White Blood Count 6.7 Red Blood Count 4.17 Hemoglobin 13.3 Hematocrit 39.4 Mean Corpuscular Volume 94.7 Mean Corpuscular Hemoglobin 31.8 Mean Corpuscular Hemoglobin Concent 33.6 Red Cell Distribution Width 12.9 Platelet Count 252 Mean Platelet Volume 7.1 Neutrophils (%) (Auto) 63.0 Lymphocytes (%) (Auto) 20.7 Monocytes (%) (Auto) 13.5 Eosinophils (%) (Auto) 2.5 Basophils (%) (Auto) 0.3 Neutrophils # (Auto) 4.2 Lymphocytes # (Auto) 1.4 Monocytes # (Auto) 0.9 Eosinophils # (Auto) 0.2 Basophils # (Auto) 0.0 CBC Comment DIFF FINAL Differential Comment Blood Urea Nitrogen 19 Creatinine 0.92 Random Glucose 106 Calcium Level 9.1 Sodium Level 141 Potassium Level 4.0 Chloride Level 105 Carbon Dioxide Level 30.1 Anion Gap 6 Estimat Glomerular Filtration Rate 82 Triglycerides Level 179 Cholesterol Level 116 LDL Cholesterol 44 HDL Cholesterol 35.8 Cholesterol/HDL Ratio 3.24 Result Diagram: 08/09/17 0620 08/09/17 0620 Imaging Last Impressions Head CT 08/08/17 1159 Signed Impressions: Service Date/Time: Tuesday, August 08, 2017 12:51 - CONCLUSION: Normal examination. Luis Angel Kc MD Chest X-Ray 08/08/17 1159 Signed Impressions: Service Date/Time: Tuesday, August 08, 2017 12:14 - CONCLUSION: Normal examination. Luis Angel Kc MD Head Magnetic Resonance Angiography 08/08/17 0000 Signed Impressions: Service Date/Time: Tuesday, August 08, 2017 15:15 - CONCLUSION: Normal examination. Duncan England MD Carotid Artery Ultrasound 08/08/17 0000 Signed Impressions: Service Date/Time: Tuesday, August 08, 2017 14:15 - CONCLUSION: No evidence of flow-limiting carotid stenosis. Duncan England MD Brain MRI 08/08/17 0000 Signed Impressions: Service Date/Time: Tuesday, August 08, 2017 15:15 - CONCLUSION: Negative noncontrast brain MRI. There are no findings to indicate recent ischemia. Duncan Bustamante MD Assessment and Plan Problem List: (1) TIA (transient ischemic attack) ICD Codes: G45.9 - Transient cerebral ischemic attack, unspecified Plan: Echo with no thrombus, Atrial Septal Aneurysm identified ?PFO. No evidence of atrial fibrillation on telemetry. RECS: Keep NPO after midnight for SABRINA in am. Satish Xiao MD Aug 09, 2017 16:17
[2017-08-09] MEDS: ATORVASTATIN 20 MG TAB PO SCH (21:23)
--- NOTE | 2017-08-09 21:44 | RADRPT ---
EXAM DATE/TIME: 08/09/2017 20:13 [facility] COMPARISON: No previous studies available for comparison. INDICATIONS : Bilateral leg swelling. MEDICAL HISTORY : Hypercholesterolemia. Hypertension. Diabetes. SURGICAL HISTORY : Tonsillectomy. Appendectomy. Cholecystectomy. Abdominal surgery. Bilateral shoulder pain. Knee surger y. Left hand surgery. ENCOUNTER: Initial ACUITY: 1 day PAIN SCORE: 2/10 LOCATION: Bilateral legs. TECHNIQUE: Venous ultrasound of the left and right leg was performed from the inguinal ligament to the proximal calf. Real-time, color Doppler and spectral tracing, compression and augmentation techniques were us ed. FINDINGS: RIGHT LEG: There is normal compressibility of the deep venous system from the inguinal region to the proximal ca lf. No echogenic clot is seen in the lumen of the common femoral, femoral, popliteal, and posterior tibial veins. There is a normal response of the venous system to proximal and distal augmentation an d respiration. LEFT LEG: There is normal compressibility of the deep venous system from the inguinal region to the proximal ca lf. No echogenic clot is seen in the lumen of the common femoral, femoral, popliteal, and posterior tibial veins. There is a normal response of the venous system to proximal and distal augmentation an d respiration. CONCLUSION: Normal examination. Rafa Guevara Jr., MD on August 09, 2017 at 21:41 Board Certified Radiologist. This report was verified electronically.
--- NOTE | 2017-08-09 23:20 | EKG ---
Date Performed: 08/08/2017 Time Performed: 12:00:18 PTAGE: 66 years EKG: SINUS BRADYCARDIA BORDERLINE ECG NO PREVIOUS TRACING DOCTOR: Ivan Bartholomew Interpretating Date/Time 08/09/2017 23:20:30
[2017-08-10 00:15] VITALS: BP 130/69; PULSE 75; RESP 18; TEMP 97.9; O2SAT 95
[2017-08-10 04:15] VITALS: BP 128/68; PULSE 64; RESP 16; TEMP 98.3; O2SAT 99
[2017-08-10] MEDS ORDERED: LACTATED RINGER'S 1000 ML IV PRN (07:45)
[2017-08-10] MEDS ORDERED: SODIUM CHLORID 0.9% 500 ML IV PRN (07:45)
[2017-08-10] MEDS ORDERED: CHLORHEXIDINE GLUCONATE 2 % 1 PACK (2 CLOTHS) TOPICAL PRN (07:45)
[2017-08-10] MEDS ORDERED: METOPROLOL TARTRATE 25 MG TAB PO PRN (07:45)
[2017-08-10] MEDS ORDERED: POVIDONE IODINE 5% (ANTISEPSIS KIT) 4 APPLICATIONS EACH NARE PRN (07:45)
[2017-08-10] MEDS ORDERED: INSULIN HUMAN REGULAR 1,000 UNITS/10 ML VIAL SQ PRN (07:45)
[2017-08-10] MEDS: INSULIN ASPART SUPPLEMENTAL SCALE SQ SCH (08:00)
--- NOTE | 2017-08-10 10:03 | MG ---
cc: GINA LOPEZ M.D. Lab No: [id number] Date: 08/10/2017 Age: 68 Sex: M Race: ___ INDICATIONS This is a 68-year-old man repetitive speech getting out of the shower. MEDICATIONS 1. aspirin 2. Lipitor DESCRIPTION A symmetric 10 Hz 60 microvolt posterior rhythm is seen. The recording overall is synchronous and symmetric and appears quite normal. No hemisphere asymmetry is noted. Hyperventilation was performed with good effort without change in the background. Photic stimulation is performed without significant posterior driving. He is noted to fall asleep, but did not reach stage II sleep. IMPRESSION A normal awake and sleep EEG. No evidence for a focal or diffuse abnormality. MD CESAR Damian/ROSE /9:31 AM /9:55 AM
--- NOTE | 2017-08-10 10:23 | ECHRPT ---
Indication: CVA/TIA CONCLUSIONS Normal LV dimensions and function No significant valvulopathies No thrombus in the NAVIN No vegetations or masses Negative Bubble Study; No shunts There is a Atrial Septal Aneurysm, however no PFO No pericardial effusion BP: 128 / 68 HR: Rhythm: Technical Quality: Medications Complications Proc. Components Satish Xiao MD (Electronically Signed) Final Date:10 August 2017 10:22
[2017-08-10] MEDS ORDERED: ASPI-183 PO (10:59)
--- NOTE | 2017-08-10 12:45 | HHI.DS ---
Discharge Summary Admission Date Aug 08, 2017 at 14:06 Discharge Date: Aug 10, 2017 Admitting Diagnosis TIA (1) TIA (transient ischemic attack) ICD Code: G45.9 - Transient cerebral ischemic attack, unspecified Procedures Transesophageal echocardiogram. Brief History - From Admission Written by Meredith Somers, acting as scribe for Dr. Palma on 08/08/17 at 14: 15. This is a 66yo male with a PMHX of HTN, DM, HLD and BPH who presents to [facility] ED with complaints of altered mental status x 1 day. Patient woke up in his usual state of health this morning but shortly after taking a hot bath he developed altered mental status with repetitive questioning. Patient reports feeling lightheaded after taking a hot bath. He was unable to recall the date or city. Patient was able to recognize his . He was able to walk without any problems. He continues to be confused. He has no recollection of the event. Presently, he is not lightheaded. He denies any chest pain or shortness of breath. He denies any vision changes, weakness, numbness or tingling. He denies any nausea, vomiting or abdominal pain. His states he has not returned to his baseline. In the ED, CT head was negative for acute intracranial process. Lab studies were essentially unremarkable. CXR showed no acute cardiopulmonary process. Initial troponin was 0.02. CBC/BMP: 08/09/17 0620 08/09/17 0620 Significant Findings Laboratory Tests Test 08/08/17 12:05 08/08/17 12:42 08/09/17 06:20 Red Blood Count 4.30 MIL/MM3 (4.50-5.90) 4.17 MIL/MM3 (4.50-5.90) Monocytes (%) (Auto) 11.4 % (0.0-8.0) 13.5 % (0.0-8.0) Blood Urea Nitrogen 21 MG/DL (7-18) 19 MG/DL (7-18) Random Glucose 107 MG/DL (74-106) Aspartate Amino Transf (AST/SGOT) 52 U/L (15-37) Potassium Level 5.2 MEQ/L (3.5-5.1) Estimat Glomerular Filtration Rate 61 ML/MIN (>89) 82 ML/MIN (>89) Hemoglobin A1c 6.4 % (4.3-6.0) Troponin I LESS THAN 0.02 NG/ML Urine Mucus FEW /lpf (OCC) Triglycerides Level 179 MG/DL (42-150) Cholesterol Level 116 MG/DL (120-200) HDL Cholesterol 35.8 MG/DL (40.0-60.0) Imaging Last Impressions Lower Extremity Ultrasound 08/09/17 0000 Signed Impressions: Service Date/Time: July 20:13 - CONCLUSION: Normal examination. Rafa Guevara Jr., MD Head CT 08/08/17 1159 Signed Impressions: Service Date/Time: Tuesday, August 08, 2017 12:51 - CONCLUSION: Normal examination. Luis Angel Kc MD Chest X-Ray 08/08/179 Signed Impressions: Service Date/Time: Tuesday, August 08, 2017 12:14 - CONCLUSION: Normal examination. Luis Angel Kc MD Head Magnetic Resonance Angiography 08/08/17 0000 Signed Impressions: Service Date/Time: Tuesday, August 08, 2017 15:15 - CONCLUSION: Normal examination. Duncan England MD Carotid Artery Ultrasound 08/08/17 0000 Signed Impressions: Service Date/Time: Tuesday, August 08, 2017 14:15 - CONCLUSION: No evidence of flow-limiting carotid stenosis. Duncan England MD Brain MRI 08/08/17 0000 Signed Impressions: Service Date/Time: Tuesday, August 08, 2017 15:15 - CONCLUSION: Negative noncontrast brain MRI. There are no findings to indicate recent ischemia. Ducnan Bustamante MD PE at Discharge GENERAL: Patient sitting up in chair eating breakfast. Appears comfortable. Moving All extremities. Alert and oriented 4. Hospital Course Patient symptoms resolved. Neurology was consulted. Brain imaging as above. Negative for signs of stroke. Ultrasound carotids negative for hemodynamically significant stenosis. Echocardiogram negative for thrombus, however did show possible atrial septal aneurysm. Patient underwent SABRINA which confirmed atrial septal aneurysm, however no PFO, negative bubble study. EEG was also performed and negative for epileptiform activity. Patient will be discharged home with increased dose of aspirin 325 mg daily. Follow with primary care and neurology. She was also monitored on telemetry during hospital stay which was negative for irregular rhythm. Patient does have Holter monitor of which official read is pending. For problem-based summary from most recent progress note, please see below. //TIA/CVA - CT head negative for acute intracranial process, images reviewed by me - Neurology consulted, appreciate recommendations - PT/OT/ST eval/tx - 2D echo negative for thrombus. - carotid doppler US negative for hemodynamically significant stenosis. - MRI/MRA brain negative acute process - holter monitor - monitor blood sugar - NPO for now, bedside swallow evaluation - ASA daily - Continuous cardiac monitoring - Seizure and fall precautions = Echo with no thrombus, however possible atrial aneurysm. TIA happened on twice daily aspirin. There is no evidence of atrial fibrillation on telemetry so far during this admission. Due to the possibility of [place]ical [place], Discussed with neurology, who agrees with cardiology consultation for SABRINA, ultrasound to rule out DVT. = Pending EEG. Appreciate neurology recommendations. Continue full dose aspirin. //Hypertension - Allow permissive hypertension for now - Vasotec 1.25mg IV q6h prn with parameters BP > 220/110 //Diabetes - hold home oral antidiabetic medication - Accu-Cheks - Insulin sliding scale - Obtain hemoglobin A1c //Hyperkalemia - slight hemolysis noted on specimen - continue to monitor K level //Dyslipidemia - Resume home dose of statin therapy //BPH - resume home medication //DVT prophylaxis - Lovenox sq Discharge Planning pending cardiology consult, possible SABRINA, ultrasound bilateral lower extremities to rule out DVT. Pt Condition on Discharge: Good Discharge Disposition: Discharge Home Discharge Time: > 30 minutes Discharge Instructions DIET: Follow Instructions for: Diabetic Diet Speech Therapy-Diet Recommends: Regular Activities you can perform: Regular-No Restrictions Follow up Referrals: Neurology - 1 Week with Danielle Alfaro MD PCP Follow-up - 1 Week New Medications: Aspirin (Aspirin) 325 Mg Tab 325 MG PO DAILY for prevent stroke, #30 TAB 0 Refills Continued Medications: Cholecalciferol (D3 Super Strength) 2,000 Unit Cap 2000 UNITS PO DAILY for Nutritional Supplement, #30 CAP 0 Refills Cyanocobalamin (B12) 1,000 Mcg Tab 5000 Glucosamine-Chondroitin (Glucosamine-Chondroitin) 500-400 Mg Tab 1 TAB PO DAILY for Herbal Supplements, TAB 0 Refills Pioglitazone-Metformin (Pioglitazone-Metformin) 15-500 mg Tab 1 TAB PO DAILY for Blood Sugar Management, #30 TAB 0 Refills Rosuvastatin (Rosuvastatin) 10 Mg Tab 10 MG PO HS for Cholesterol Management, TAB 0 Refills Discontinued Medications: Alfuzosin ER 24 HR (Alfuzosin ER 24 HR) 10 Mg Tab 10 MG PO DAILY for BPH, #30 TAB 0 Refills Aspirin (Aspirin) 81 Mg Chew 81 MG CHEW DAILY, TAB 0 Refills Vitamin E (Vitamin E) 100 Unit Tab 100 UNITS PO DAILY for Nutritional Supplement, TAB 0 Refills Paul Ordoñez MD Aug 10, 2017 12:45
--- NOTE | 2017-08-10 14:15 | HM ---
Date Performed: 08/08/2017 Time Performed: 20:00:00 HOOKUP DATE: 08/08/17 08:00:00 PM Wed ANALYSIS START TIME: 08/08/2017 8:05:00 PM ANALYSIS END TIME: 08/09/2017 8:01:00 PM PATIENT AGE: 66 PATIENT HEIGHT PATIENT WEIGHT DRUG LIST PATIENT DIAGNOSIS: poss ams TEST NARRATIVE: The patient's average heart rate was 69 BPM. No episodes of tachycardia wer e noted. No episodes of bradycardia were noted. No pauses exceeding 2.0 seconds were noted. 212 ventricular ectopics, which represented < 1% of the total beat count, were noted. The highest ve ntricular ectopic frequency occurred from 10:00 PM to 11:00 PM Wed. During this time 46 VE(s) occurr ed. Ventricular ectopics were observed as 212 isolated beat(s) only. No couplets or runs were noted . 25 supraventricular ectopics, which represented < 1% of the total beat count, were noted. The highest supraventricular ectopic frequency occurred from 02:00 PM to 03:00 PM Viri. During this time 10 SVE(s) occurred. No episodes of ST depression (defined as -1.0 mm or more) were noted in chann el 1. No episodes of ST depression (defined as -1.0 mm or more) were noted in channel 2. No episode s of ST depression (defined as -1.0 mm or more) were noted in channel 3. no diary given to patient TEST INTERPRETATION: No diary is available. No significant pauses are present. The underlying rh ythm is Sinus rhythm with average rate 69 bpm and range of 53 to 104 bpm. Rare premature atrial and ventricular contracti ons are seen with a single atrial triplet. Signed by : Topher Chavis
== END 2017-08-10 12:05 | disposition home or self-care (01) ==
LOC: NEPE 11:37 → NEDA 14:06 → INTOOBSV 14:06 → N05A 18:42
PROVIDERS: ADMIT Internal Medicine; ATTEND Internal Medicine
DX: G45.9 Transient cerebral ischemic attack, unspecified (principal); I10 Essential (primary) hypertension; E11.9 Type 2 diabetes mellitus without complications; E78.5 Hyperlipidemia, unspecified; E87.5 Hyperkalemia; N40.0 Benign prostatic hyperplasia without lower urinary tract symptoms; M79.89 Other specified soft tissue disorders; Z87.442 Personal history of urinary calculi; Z79.82 Long term (current) use of aspirin; Z79.84 Long term (current) use of oral hypoglycemic drugs
CPT/HCPCS: 70450; 70544; 70551; 71045; 80048; 80053; 80061; 80307; 81001; 82948; 83036; 84484; 85025; 85610; 85730; 92610; 93005; 93225; 93226; 93306; 93312; 93320; 93325; 93880; 93970; 94003; 95819; 97161; 97165; 99285; G0378; G8987; G8988; G8996; G8997; G8998; J1650